=== PATIENT | male | born 1950 | race Caucasian/White ===

== ENCOUNTER 2020-11-18 16:42 | Inpatient (IN) ==
[2020-11-18 17:46] LABS: Basophils # 0.1 10*3/uL (0.0-0.2); Basophils % 0.6 % (0.0-0.8); Eosinophils # 0.2 10*3/uL (0.0-0.87); Hematocrit 42.7 VOL% (42.0-52.0); Hemoglobin 14.6 GM/DL (14.0-18.0); Immature Granulocytes Absolute 0.08 #; Lymphocytes # 1.3 10*3/uL (1.4-4.0); Lymphocytes % 16.1 % (21.2-54.2); Mean Corpuscular HGB Conc 34.2 GM/DL (32-36); Mean Corpuscular Volume 101.7 FL (87-102); Mean Platelet Volume 9.7 FL (9.6-12.0); Monocytes % 10.1 % (1.7-12.7); Neutrophils % 70.2 % (38.7-73.9); Platelet Count 180 T/CUMM (130-400); Red Cell Distribution Width 15.7 % (9.3-17.3); White Blood Count 8.2 T/CUMM (4-12)
[2020-11-18 18:04] LABS: Bilirubin,Total 0.5 MG/DL (0.2-1.0); Calcium 8.6 MG/DL (8.5-10.1); Osmolality,Calculated 288.1 MOS/KG (273-304); Potassium 3.3 MMOL/L (3.5-5.1); Total Protein 6.4 G/DL (6.4-8.2)
[2020-11-18 19:39] LABS: Bilirubin,Urine Negative (Negative); Blood, Urine Large mg/dL (Negative); Glucose,Urine (UA) Negative (Negative); Ketones,Urine Negative (Negative); Mucus,Urine Occasional /LPF (Occasional); Nitrite,Urine Negative (Negative); Protein,Urine 30 MG/DL; RBC,Urine 83 /HPF (0-4); Sperm,Urine Occasional /HPF (Negative); Squamous Epithelial Cell,Urine Occasional /HPF (0-10); Urine Appearance CLOUDY (Clear); Urine Color Yellow (Yellow); Urine Specific Gravity 1.021 (1.001-1.035); Urine Urobilinogen < 2.0 EU/DL (0.2-1.0)
[2020-11-18] MEDS ORDERED: ALBUTEROL/IPRATROPIUM 3 ML NEB RESP TX PRN (19:54)
[2020-11-18] MEDS ORDERED: DEXTROSE 50% 25 GM/50 ML VIAL IV PRN (19:54)
[2020-11-18] MEDS ORDERED: GLUCAGON 1 MG VIAL IM PRN (19:54)
[2020-11-18] MEDS ORDERED: CALCIUM CARBONATE CHEW 500 MG TABLET PO PRN (19:54)
[2020-11-18] MEDS ORDERED: ACETAMINOPHEN 325 MG TABLET PO PRN (19:54)
[2020-11-18] MEDS ORDERED: ONDANSETRON 4 MG/2 ML VIAL IV PRN (19:54)
[2020-11-18] MEDS: INSULIN REGULAR 100 UNIT/ML SUBCUT SCH (23:11)
[2020-11-18] MEDS: PANTOPRAZOLE 40 MG TABLET PO SCH (23:36)
[2020-11-18] MEDS: ENOXAPARIN 40 MG/0.4 ML SYRINGE SUBCUT SCH (23:36)
[2020-11-18] MEDS: MEROPENEM 500 MG in SODIUM CHLORIDE 0.9% 100 ML IV SCH (23:45)
[2020-11-19] MEDS: MEROPENEM 500 MG in SODIUM CHLORIDE 0.9% 100 ML IV SCH ×4 (05:27→23:55)
[2020-11-19 06:27] LABS: Basophils # 0.1 10*3/uL (0.0-0.2); Basophils % 0.8 % (0.0-0.8); Eosinophils # 0.2 10*3/uL (0.0-0.87); Hematocrit 42.9 VOL% (42.0-52.0); Hemoglobin 15.2 GM/DL (14.0-18.0); Immature Granulocytes % 1.2 %; Immature Granulocytes Absolute 0.09 #; Lymphocytes # 1.4 10*3/uL (1.4-4.0); Lymphocytes % 18.8 % (21.2-54.2); Mean Corpuscular HGB Conc 35.4 GM/DL (32-36); Mean Corpuscular Volume 100.2 FL (87-102); Mean Platelet Volume 9.4 FL (9.6-12.0); Monocytes % 9.8 % (1.7-12.7); Neutrophils % 66.4 % (38.7-73.9); Platelet Count 163 T/CUMM (130-400); Red Blood Count 4.28 MC/CUMM (3.8-5.5); Red Cell Distribution Width 15.5 % (9.3-17.3); White Blood Count 7.7 T/CUMM (4-12)
[2020-11-19 06:43] LABS: Calcium 8.9 MG/DL (8.5-10.1); Osmolality,Calculated 283.4 MOS/KG (273-304); Potassium 3.7 MMOL/L (3.5-5.1)
[2020-11-19] MEDS: INSULIN REGULAR 100 UNIT/ML SUBCUT SCH ×4 (09:17→21:00)
[2020-11-19] MEDS: LEVOTHYROXINE 150 MCG TABLET PO SCH (09:32)
[2020-11-19] MEDS: BISOPROLOL 5 MG TABLET PO SCH (09:33)
[2020-11-19] MEDS: metFORMIN 500 MG TABLET PO SCH (09:33)
[2020-11-19] MEDS: MONTELUKAST 10 MG TABLET PO SCH (09:33)
[2020-11-19] MEDS: LOSARTAN 25 MG TABLET PO SCH (09:34)
[2020-11-19] MEDS: DULoxetine 30 MG CAPSULE PO SCH (09:34)
[2020-11-19] MEDS: FENOFIBRATE 145 MG TABLET PO SCH (09:34)
[2020-11-19] MEDS: PANTOPRAZOLE 40 MG TABLET PO SCH ×2 (09:34→20:58)
[2020-11-19] MEDS: TAMSULOSIN 0.4 MG CAPSULE PO SCH (09:34)
[2020-11-19] MEDS: hydroCHLOROthiazide 25 MG TABLET PO SCH (09:35)
[2020-11-19] MEDS ORDERED: ZALEPLON 5 MG CAPSULE PO PRN (18:38)
[2020-11-19] MEDS: ENOXAPARIN 40 MG/0.4 ML SYRINGE SUBCUT SCH (20:58)
[2020-11-19] MEDS: HYDROmorphone 2 MG/1 ML VIAL IV PRN (20:59)
[2020-11-20 05:43] LABS: Risk Ratio 6.36; VLDL Cholesterol 61.4 MG/DL
[2020-11-20] MEDS: MEROPENEM 500 MG in SODIUM CHLORIDE 0.9% 100 ML IV SCH ×3 (06:09→17:47)
[2020-11-20] MEDS: HYDROmorphone 2 MG/1 ML VIAL IV PRN ×2 (06:16→18:35)
[2020-11-20] MEDS: INSULIN REGULAR 100 UNIT/ML SUBCUT SCH ×4 (08:42→22:32)
[2020-11-20] MEDS ORDERED: DEXTROSE 50% 25 GM/50 ML VIAL IV PRN (10:39)
[2020-11-20] MEDS: LEVOTHYROXINE 150 MCG TABLET PO SCH (10:42)
[2020-11-20] MEDS: DULoxetine 30 MG CAPSULE PO SCH (10:42)
[2020-11-20] MEDS: MONTELUKAST 10 MG TABLET PO SCH (10:43)
[2020-11-20] MEDS: hydroCHLOROthiazide 25 MG TABLET PO SCH (10:43)
[2020-11-20] MEDS: FENOFIBRATE 145 MG TABLET PO SCH (10:43)
[2020-11-20] MEDS: BISOPROLOL 5 MG TABLET PO SCH (10:43)
[2020-11-20] MEDS: metFORMIN 500 MG TABLET PO SCH (10:43)
[2020-11-20] MEDS: LOSARTAN 25 MG TABLET PO SCH (10:43)
[2020-11-20] MEDS: PANTOPRAZOLE 40 MG TABLET PO SCH ×2 (10:44→21:09)
[2020-11-20] MEDS: TAMSULOSIN 0.4 MG CAPSULE PO SCH (10:44)
[2020-11-21] MEDS: MEROPENEM 500 MG in SODIUM CHLORIDE 0.9% 100 ML IV SCH ×2 (00:17→06:06)
[2020-11-21 05:51] LABS: Basophils # 0.1 10*3/uL (0.0-0.2); Basophils % 0.7 % (0.0-0.8); Eosinophils # 0.3 10*3/uL (0.0-0.87); Eosinophils % 4.4 % (0.00-10.9); Hematocrit 41.9 VOL% (42.0-52.0); Immature Granulocytes % 1.6 %; Immature Granulocytes Absolute 0.12 #; Lymphocytes # 1.5 10*3/uL (1.4-4.0); Lymphocytes % 19.6 % (21.2-54.2); Mean Corpuscular HGB Conc 33.4 GM/DL (32-36); Mean Corpuscular Volume 104.5 FL (87-102); Mean Platelet Volume 10.2 FL (9.6-12.0); Monocytes % 10.9 % (1.7-12.7); Neutrophils % 62.8 % (38.7-73.9); Platelet Count 168 T/CUMM (130-400); Red Blood Count 4.01 MC/CUMM (3.8-5.5); Red Cell Distribution Width 15.2 % (9.3-17.3); White Blood Count 7.5 T/CUMM (4-12)
[2020-11-21 06:16] LABS: Calcium 9.2 MG/DL (8.5-10.1); Osmolality,Calculated 279.5 MOS/KG (273-304); Potassium 3.6 MMOL/L (3.5-5.1)
[2020-11-21 06:18] LABS: Eosinophils 1 % (0-10); Lymphocytes 15 % (20-55); Platelet Estimate Normal; Segmented Neutrophils 75 % (50-85); Total Cells Counted 100
[2020-11-21 06:19] LABS: Anisocytosis 3+; Giant Platelets Few; Macrocytosis 3+
[2020-11-21] MEDS: INSULIN REGULAR 100 UNIT/ML SUBCUT SCH ×2 (08:29→14:54)
[2020-11-21] MEDS: MONTELUKAST 10 MG TABLET PO SCH (09:24)
[2020-11-21] MEDS: FENOFIBRATE 145 MG TABLET PO SCH (09:24)
[2020-11-21] MEDS: hydroCHLOROthiazide 25 MG TABLET PO SCH (09:25)
[2020-11-21] MEDS: metFORMIN 500 MG TABLET PO SCH (09:25)
[2020-11-21] MEDS: DULoxetine 30 MG CAPSULE PO SCH (09:25)
[2020-11-21] MEDS: LEVOTHYROXINE 150 MCG TABLET PO SCH (09:25)
[2020-11-21] MEDS: BISOPROLOL 5 MG TABLET PO SCH (09:25)
[2020-11-21] MEDS: LOSARTAN 25 MG TABLET PO SCH (09:25)
[2020-11-21] MEDS: PANTOPRAZOLE 40 MG TABLET PO SCH (09:25)
[2020-11-21] MEDS: TAMSULOSIN 0.4 MG CAPSULE PO SCH (10:28)
[2020-11-21] MEDS ORDERED: ERTAPENEM 1,000 MG in SODIUM CHLORIDE 0.9% 100 ML IV SCH (12:00)
[2020-11-21 16:34] VITALS: BP 133/49
== END 2020-11-21 18:01 | disposition home or self-care (01) | DRG 699 ==
LOC: N.ED 16:42 → N.3E 21:36 → SUATTDRO 21:36 → N.3E 22:22
PROVIDERS: ADMIT Hospitalist; ATTEND Internal Medicine

== ENCOUNTER 2020-12-08 05:35 | Inpatient (IN) ==
[2020-12-08] MEDS ORDERED: ALVIMOPAN 12 MG CAPSULE PO ONE (06:00)
[2020-12-08] MEDS ORDERED: ERTAPENEM 1,000 MG in SODIUM CHLORIDE 0.9% 100 ML IV ONE (06:00)
[2020-12-08] MEDS ORDERED: ROCURONIUM 50 MG/5 ML VIAL IV ONE (06:18)
[2020-12-08] MEDS ORDERED: propofoL 200 MG/20 ML VIAL IV ONE (06:18)
[2020-12-08] MEDS ORDERED: SUCCINYLCHOLINE 200 MG/10 ML VIAL ONE (06:18)
[2020-12-08] MEDS ORDERED: LIDOCAINE 2% 5 ML VIAL ONE (06:18)
[2020-12-08] MEDS ORDERED: fentaNYL 100 MCG/2 ML VIAL ONE (06:19)
[2020-12-08] MEDS ORDERED: MIDAZOLAM 2 MG/2 ML VIAL ONE (06:19)
[2020-12-08] MEDS ORDERED: DEXAMETHASONE 4 MG/1 ML VIAL ONE (06:23)
[2020-12-08] MEDS ORDERED: ROPIVACAINE 0.5% 30 ML VIAL ONE (06:23)
[2020-12-08] MEDS ORDERED: LACTATED RINGERS 1,000 ML IV SCH (06:30)
[2020-12-08] MEDS ORDERED: INDOCYANINE GREEN 25 MG VIAL IV ONE (06:31)
[2020-12-08] MEDS ORDERED: GABAPENTIN 400 MG CAPSULE PO STA (06:32)
[2020-12-08] MEDS ORDERED: ACETAMINOPHEN 500 MG TABLET PO STA (06:33)
[2020-12-08] MEDS ORDERED: FAMOTIDINE 20 MG TABLET PO STA (06:33)
[2020-12-08] MEDS ORDERED: BUPIVACAINE 0.5% 50 ML VIAL ONE (06:34)
[2020-12-08] MEDS ORDERED: ALBUMIN 5% 25.0 GM/500 ML VIAL IV ONE (06:36)
[2020-12-08] MEDS ORDERED: EPINEPHrine 1 MG/ML VIAL ONE (06:36)
[2020-12-08] MEDS ORDERED: KETAMINE 500 MG/10 ML VIAL ONE (06:39)
[2020-12-08] MEDS ORDERED: DEXMEDETOMIDINE 200 MCG/2 ML VIAL ONE (06:40)
[2020-12-08] MEDS ORDERED: LIDOCAINE 1% 5 ML VIAL ONE (06:53)
[2020-12-08] MEDS ORDERED: PHENYLEPHRINE 10 MG/1 ML VIAL IV ONE (07:45)
[2020-12-08] MEDS ORDERED: VECURONIUM 10 MG VIAL IV ONE (08:40)
[2020-12-08] MEDS ORDERED: ONDANSETRON 4 MG/2 ML VIAL ONE (09:34)
[2020-12-08] MEDS ORDERED: TISSUE ADHESIVE 1 EACH APPLICATOR TOP ONE (10:34)
[2020-12-08] MEDS ORDERED: NEOSTIGMINE 10 MG/10 ML VIAL ONE (11:16)
[2020-12-08] MEDS ORDERED: GLYCOPYRROLATE 0.4 MG/2 ML VIAL ONE (11:16)
[2020-12-08] MEDS ORDERED: ESMOLOL 100 MG/10 ML VIAL IV ONE (11:41)
[2020-12-08] MEDS ORDERED: ONDANSETRON 4 MG/2 ML VIAL IV PRN ×2 (12:11→13:56)
[2020-12-08 12:13] LABS: Bilirubin,Urine Negative (Negative); Blood, Urine Large mg/dL (Negative); Glucose,Urine (UA) Negative (Negative); Hyaline Casts,Urine 13 /LPF (0-3); Ketones,Urine Negative (Negative); Mucus,Urine Occasional /LPF (Occasional); Nitrite,Urine Negative (Negative); Protein,Urine 30 MG/DL; RBC,Urine 645 /HPF (0-4); Sperm,Urine Occasional /HPF (Negative); Squamous Epithelial Cell,Urine Occasional /HPF (0-10); Urine Appearance Slightly Hazy (Clear); Urine Color Yellow (Yellow); Urine Specific Gravity 1.013 (1.001-1.035); Urine Urobilinogen < 2.0 EU/DL (0.2-1.0)
[2020-12-08] MEDS: HYDROmorphone 2 MG/1 ML VIAL IV PRN ×3 (12:25→17:30)
[2020-12-08] MEDS ORDERED: IBUPROFEN 400 MG TABLET PO PRN (13:56)
[2020-12-08] MEDS ORDERED: DEXTROSE 50% 25 GM/50 ML VIAL IV PRN (13:56)
[2020-12-08] MEDS ORDERED: GLUCAGON 1 MG VIAL IM PRN (13:56)
[2020-12-08 14:17] LABS: Basophils % 0.3 % (0.0-0.8); Eosinophils % 0.3 % (0.00-10.9); Hemoglobin 13.2 GM/DL (14.0-18.0); Immature Granulocytes % 0.4 %; Immature Granulocytes Absolute 0.03 #; Lymphocytes # 0.4 10*3/uL (1.4-4.0); Lymphocytes % 5.5 % (21.2-54.2); Mean Corpuscular HGB Conc 35.7 GM/DL (32-36); Mean Corpuscular Volume 99.7 FL (87-102); Mean Platelet Volume 9.9 FL (9.6-12.0); Monocytes % 3.2 % (1.7-12.7); Neutrophils % 90.3 % (38.7-73.9); Platelet Count 116 T/CUMM (130-400); Red Blood Count 3.71 MC/CUMM (3.8-5.5); Red Cell Distribution Width 14.8 % (9.3-17.3); White Blood Count 6.8 T/CUMM (4-12)
[2020-12-08 14:25] LABS: Calcium 8.1 MG/DL (8.5-10.1); Osmolality,Calculated 273.1 MOS/KG (273-304)
[2020-12-08] MEDS: OXYBUTYNIN XL 15 MG TABLET PO SCH (14:44)
[2020-12-08] MEDS: LACTATED RINGERS 1,000 ML IV SCH ×2 (14:45→18:11)
[2020-12-08] MEDS: KETOROLAC 15 MG/1 ML VIAL IV SCH ×2 (15:29→20:31)
[2020-12-08] MEDS: INSULIN REGULAR 100 UNIT/ML SUBCUT SCH ×2 (17:26→20:31)
[2020-12-08] MEDS: PANTOPRAZOLE 40 MG TABLET PO SCH (17:26)
[2020-12-08] MEDS: ALVIMOPAN 12 MG CAPSULE PO SCH (20:31)
[2020-12-09] MEDS: HYDROmorphone 2 MG/1 ML VIAL IV PRN ×2 (00:16→20:11)
[2020-12-09] MEDS: KETOROLAC 15 MG/1 ML VIAL IV SCH ×4 (03:20→20:09)
[2020-12-09] MEDS: LACTATED RINGERS 1,000 ML IV SCH (03:33)
[2020-12-09 05:53] LABS: Basophils % 0.1 % (0.0-0.8); Hematocrit 36.4 VOL% (42.0-52.0); Hemoglobin 12.9 GM/DL (14.0-18.0); Immature Granulocytes % 0.7 %; Immature Granulocytes Absolute 0.06 #; Lymphocytes # 0.7 10*3/uL (1.4-4.0); Lymphocytes % 7.5 % (21.2-54.2); Mean Corpuscular HGB Conc 35.4 GM/DL (32-36); Mean Corpuscular Volume 99.7 FL (87-102); Mean Platelet Volume 10.2 FL (9.6-12.0); Monocytes % 9.1 % (1.7-12.7); Neutrophils % 82.6 % (38.7-73.9); Platelet Count 129 T/CUMM (130-400); Red Blood Count 3.65 MC/CUMM (3.8-5.5); Red Cell Distribution Width 14.6 % (9.3-17.3); White Blood Count 8.8 T/CUMM (4-12)
[2020-12-09] MEDS: LEVOTHYROXINE 150 MCG TABLET PO SCH (06:07)
[2020-12-09] MEDS: ENOXAPARIN 40 MG/0.4 ML SYRINGE SUBCUT SCH (06:08)
[2020-12-09 06:20] LABS: Calcium 8.1 MG/DL (8.5-10.1)
[2020-12-09] MEDS: INSULIN REGULAR 100 UNIT/ML SUBCUT SCH ×4 (08:43→20:09)
[2020-12-09] MEDS: DULoxetine 30 MG CAPSULE PO SCH (08:44)
[2020-12-09] MEDS: ASPIRIN CHEW 81 MG TABLET PO SCH (08:44)
[2020-12-09] MEDS: BISOPROLOL 5 MG TABLET PO SCH (08:44)
[2020-12-09] MEDS: PANTOPRAZOLE 40 MG TABLET PO SCH ×2 (08:44→15:54)
[2020-12-09] MEDS: OXYBUTYNIN XL 15 MG TABLET PO SCH (08:44)
[2020-12-09] MEDS: hydroCHLOROthiazide 25 MG TABLET PO SCH (08:44)
[2020-12-09] MEDS: TAMSULOSIN 0.4 MG CAPSULE PO SCH (08:45)
[2020-12-09] MEDS: FENOFIBRATE 145 MG TABLET PO SCH (08:45)
[2020-12-09] MEDS: ALVIMOPAN 12 MG CAPSULE PO SCH ×2 (08:45→20:08)
[2020-12-09] MEDS: MONTELUKAST 10 MG TABLET PO SCH (08:51)
[2020-12-10] MEDS: KETOROLAC 15 MG/1 ML VIAL IV SCH ×2 (02:49→11:19)
[2020-12-10] MEDS: LEVOTHYROXINE 150 MCG TABLET PO SCH (06:10)
[2020-12-10] MEDS: ENOXAPARIN 40 MG/0.4 ML SYRINGE SUBCUT SCH (06:11)
[2020-12-10 07:17] VITALS: BP 156/67
[2020-12-10] MEDS: INSULIN REGULAR 100 UNIT/ML SUBCUT SCH (07:30)
[2020-12-10] MEDS: OXYBUTYNIN XL 15 MG TABLET PO SCH (08:58)
[2020-12-10] MEDS: hydroCHLOROthiazide 25 MG TABLET PO SCH (08:58)
[2020-12-10] MEDS: ALVIMOPAN 12 MG CAPSULE PO SCH (08:59)
[2020-12-10] MEDS: TAMSULOSIN 0.4 MG CAPSULE PO SCH (08:59)
[2020-12-10] MEDS: BISOPROLOL 5 MG TABLET PO SCH (08:59)
[2020-12-10] MEDS: FENOFIBRATE 145 MG TABLET PO SCH (08:59)
[2020-12-10] MEDS: MONTELUKAST 10 MG TABLET PO SCH (08:59)
[2020-12-10] MEDS: DULoxetine 30 MG CAPSULE PO SCH (08:59)
[2020-12-10] MEDS: ASPIRIN CHEW 81 MG TABLET PO SCH (08:59)
[2020-12-10] MEDS: PANTOPRAZOLE 40 MG TABLET PO SCH (11:18)
== END 2020-12-10 11:15 | disposition home or self-care (01) | DRG 329 ==
LOC: N.OR 05:35 → N.SDSINP 05:35 → N.3E 13:28
PROVIDERS: ADMIT Surgery; ATTEND Surgery